=== PATIENT | female | born 1935 | race Caucasian/White ===

== ENCOUNTER → 2016-12-31 | Outpatient (CLI) | payer OTHER, MEDICARE | LOC: BMCIMAGING 14:27 | PROVIDERS: ATTEND Podiatrist Foot & Ankle Surgery | DX: M25.871 Other specified joint disorders, right ankle and foot (principal); M25.872 Other specified joint disorders, left ankle and foot ==

== ENCOUNTER 2017-01-26 07:17 | Emergency (ER) | payer OTHER, MEDICARE ==
[2017-01-26 07:26] VITALS: BP 155/90; PULSE 74; RESP 18; TEMP 97.7; O2SAT 92
--- NOTE | 2017-01-26 07:44 | EDPHY ---
H & P Time Seen by Provider: 01/26/17 07:36 HPI/ROS: CHIEF COMPLAINT: Left lateral knee pain HISTORY OF PRESENT ILLNESS: The patient is a 81-year-old female with no past medical history other than arthritis who presents to the emergency department with left lateral knee pain. She noticed her pain last evening. It is slightly swollen. It is worse with ambulation. Patient denies any trauma or fall. She has had no recent travel history. No posterior leg pain or swelling. She has not noticed any rash. REVIEW OF SYSTEMS: My complete review of systems is negative except as mentioned in the HPI. Past Medical/Surgical History: Arthritis. No history of gout or DVT. Past surgical history: Negative Social history: The patient does not smoke Smoking Status: Never smoked Physical Exam: Vitals noted General Appearance: Alert and no distress. Head: Pupils equal. Normal. Respiratory: No respiratory distress. Clear to auscultation bilaterally. Cardiac: regular rate and rhythm. Regular rate rhythm with no rubs murmurs or gallops. Extremities: Patient's left lower extremity appears symmetric to the right. The patient has mild swelling over the lateral aspect of her knee. There is mild tenderness to palpation over the distribution of the LCL. There is no popliteal fullness or palpable mass. Normal popliteal pulse. No calf tenderness. No Homans sign or cord. Patient has no discomfort with passive range of motion of her knee. There is no discomfort with stress on knee ligaments. No instability. Skin: No rashes or lesions. Neuro: Alert. Normal mood and affect. Constitutional: Initial Vital Signs Temperature (C) 36.5 C 01/26/17 07:21 Heart Rate 74 01/26/17 07:21 Respiratory Rate 18 01/26/17 07:21 Blood Pressure 155/90 H 01/26/17 07:21 O2 Sat (%) 92 01/26/17 07:21 O2 Delivery Mode Room Air Allergies/Adverse Reactions: No Known Allergies Allergy (Verified 01/26/17 07:20) Home Medications: Medication Instructions Recorded Hydrocodone/APAP 5/325 [Henrietta 1 - 2 tab PO Q4 #7 tab 01/26/17 5/325 (RX)] Medical Decision Making ED Course/Re-evaluation: In the emergency department I discussed possible etiologies with the patient. She consented to an x-ray of her left knee. Left knee x-ray: Please refer the dictated report. There is a small avulsion off the distal lateral femur. This is at the location of the patient's discomfort. I discussed the result with the patient. I answered all her questions. Patient will place ice on the lateral aspect of her knee for the next 2 days. Patient was given a knee immobilizer and crutches. She is given follow-up with Orthopedics. She also follow up with the primary care physician. I gave her warnings prior to leaving. Differential Diagnosis: Patient has discomfort on the lateral aspect of her knee. There is mild swelling. There is no ligamentous instability and I doubt ligamentous disruption. She could have some mild inflammation of her laterally. I doubt DVT or arterial occlusion. This is not appear to be zoster. I do not palpate of a Florian's cyst. Her popliteal artery palpates normal. Departure - Departure Disposition: Home, Routine, Self-Care Clinical Impression: Knee pain, acute Qualifiers: Laterality: left Qualified Code(s): M25.562 - Pain in left knee Condition: Good Instructions: Knee Pain (ED) Additional Instructions: Return with increasing pain, redness, fever, chills, posterior leg pain, posterior leg swelling or any other concerns. You have small avulsion off the distal femur. This could be causing her discomfort. You need close follow-up with Orthopedics. Referrals: Sherri Carbajal MD [Primary Care Provider] - 2-3 days, if not improved James Calix MD [Medical Doctor] - 5-7 days, call for appt. Prescriptions: Hydrocodone/APAP 5/325 [Henrietta 5/325 (RX)] 1 - 2 tab PO Q4 #7 tab
== END 2017-01-26 08:42 | disposition home or self-care (01) ==
DX: M25.562 Pain in left knee (principal)
CPT/HCPCS: 73562; 99283; L1830

== ENCOUNTER → 2017-05-02 | Outpatient (CLI) | payer OTHER, MEDICARE | LOC: BMCIMAGING 15:12 | PROVIDERS: ATTEND Internal Medicine Rheumatology | DX: Z13.820 Encounter for screening for osteoporosis (principal); M85.80 Other specified disorders of bone density and structure, unspecified site ==

== ENCOUNTER → 2017-10-09 | Outpatient (CLI) | payer OTHER, MEDICARE | LOC: FIMAGING 13:42 | PROVIDERS: ATTEND Orthopaedic Surgery | DX: Z01.818 Encounter for other preprocedural examination (principal); M16.11 Unilateral primary osteoarthritis, right hip ==

== ENCOUNTER 2017-10-23 08:17 | Inpatient (IN) | payer OTHER, MEDICARE ==
--- NOTE | 2017-10-08 11:15 | ASMTCMCOM ---
CM Note CM Note Notes: Per Dr. Sunita Monreal [phone] pt requests SNF d/c to [facility]. Date Signed: 10/08/2017 11:15 AM Electronically Signed By:LOLIS Chacon
[~2017-10-23 08:17] MED LIST: BUPI/epINEPH/KETOROLAC IU ONE; POVIDONE-IODINE 20 ML in SODIUM CL IRRIG SOLUTION 500 ML IRR ONE; ROPIVACAINE 0.2% 80 MG, EPINEPHrine 0.2 MG, KETOROLAC TROMETHAMINE 30 MG in SYRINGE 0 ML IU ONE; TRANEXAMIC ACID 1,000 MG in NS (SYRINGE) 50 ML IV ONE
[2017-10-23] MEDS ORDERED: DEXAMETHASONE 4 MG/ML VIAL IVP ONE (08:31)
[2017-10-23] MEDS ORDERED: ACETAMINOPHEN 325 MG TAB PO ONE (08:31)
[2017-10-23] MEDS ORDERED: ceFAZolin 2 GM/SWFI 2 GM/20 ML SYR IVP ONE (08:31)
[2017-10-23] MEDS ORDERED: FAMOTIDINE 20 MG TAB PO ONE (08:31)
[2017-10-23] MEDS ORDERED: LR 1,000 ML IV ONE (08:33)
[2017-10-23] MEDS ORDERED: POLYMYXIN B SULFATE 500,000 UNIT/10 ML SYR IRR ONE (09:00)
[2017-10-23] MEDS ORDERED: BUPIVACAINE/EPI 0.5% 30 ML SDV ONE (09:00)
[2017-10-23] MEDS ORDERED: BACITRACIN 50,000 UNITS/10 ML SYR IRR ONE (09:01)
--- NOTE | 2017-10-23 10:19 | PDANEPAE ---
ANE History of Present Illness right MEGHNA ANE Past Medical History - Cardiovascular History Hx Hypertension: Yes Hx Arrhythmias: No Hx Chest Pain: No Hx Coronary Artery / Peripheral Vascular Disease: No Hx CHF / Valvular Disease: No Hx Palpitations: No Cardiovascular History Comment: on HCTZ x 4-5 mos. - Pulmonary History Hx COPD: No Hx Asthma/Reactive Airway Disease: No Hx Recent Upper Respiratory Infection: No Hx Oxygen in Use at Home: No Hx Sleep Apnea: No Sleep Apnea Screening Result - Last Documented: Negative Pulmonary History Comment: seasonal allergies - Neurologic History Hx Cerebrovascular Accident: No Hx Seizures: No Hx Dementia: No - Endocrine History Hx Diabetes: No Hypothyroid: No Hyperthyroid: No - Renal History Hx Renal Disorders: No - Liver History Hx Hepatic Disorders: No - Neurological & Psychiatric Hx Hx Neurological and Psychiatric Disorders: No Neurological / Psychiatric History Comment: arthritis cervical and lumbar spine. spondylolisthesis. 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 - Cancer History Hx Cancer: No Cancer History Comment: some skin CA-lip - Congenital Disorder History Hx Congenital Disorders: No - GI History Hx Gastrointestinal Disorders: No - Other Health History Other Health History: OA hips- R hip worse - Chronic Pain History Chronic Pain: Yes (R hip) - Surgical History Prior Surgeries: bilat thumb arthroplasty;. cataract extraction w/IOL implants- bilat;. bone spur removal L ft; ANE Review of Systems Review of systems is: negative Review of Systems: - Exercise capacity Exercise capacity: >=4 METS METS (RN): 4 METS ANE Patient History - Allergies Allergies/Adverse Reactions: No Known Allergies Allergy (Verified 09/30/17 14:47) - Home Medications Home Medications: Herbals/Supplements -Info Only 1 ea PO DAILY 09/29/17 [Last Taken 10/16/17] Hydrochlorothiazide [HCTZ (*)] 25 mg PO DAILY 09/29/17 [Last Taken 10/23/17] Naproxen Sodium [Aleve 220 MG (*)] 220 mg PO BID PRN 09/29/17 [Last Taken Unknown] Sertraline HCl [Zoloft 100mg (*)] 100 mg PO DAILY 09/29/17 [Last Taken 10/23/17] Fluticasone Propionate [Clarispray] 1 spray NS DAILY PRN 09/30/17 [Last Taken ] - NPO status NPO Status: no food or drink >8 hours NPO Since - Liquids (Date): 10/23/17 NPO Since - Liquids (Time): 07:00 NPO Since - Solids (Date): 10/22/17 NPO Since - Solids (Time): 20:00 - Anes Hx Anes Hx: no prior problems - Smoking Hx Smoking Status: Never smoked - Alcohol Use Alcohol Use: Occasionally ANE Labs/Vital Signs - Vital Signs Vital Signs: reviewed preoperatively; see RN documention for details Blood Pressure: 136/81 Heart Rate: 77 Respiratory Rate: 16 O2 Sat (%): 94 Height: 158.75 cm Weight: 53.524 kg ANE Physical Exam - Airway Neck exam: FROM Mallampati Score: Class 2 - Pulmonary Pulmonary: no respiratory distress - Cardiovascular Cardiovascular: regular rate and rhythym - ASA Status ASA Status: II ANE Anesthesia Plan Anesthesia Plan: spinal
[2017-10-23] MEDS ORDERED: MIDAZOLAM 2 MG/2 ML VIAL IVP ONE (10:22)
--- NOTE | 2017-10-23 10:27 | PDHPUP ---
History & Physical Update H&P update statement: This history and physical update is based on an assessment of the patient which was completed after admission or registration (within 24 hours), but prior to the surgery/procedure. H&P update: H&P reviewed & patient examined, no change in patient's condition since H&P completed
[2017-10-23] MEDS ORDERED: BUPIVACAINE 0.5% 30 ML SDV ONE (10:34)
[2017-10-23] MEDS ORDERED: LIDOCAINE 2% 5 ML SDV ONE (10:35)
[2017-10-23] MEDS ORDERED: PROPOFOL/EMULSION 500 MG/50 ML BOTTLE IV ONE ×2 (10:35→12:08)
[2017-10-23] MEDS ORDERED: fentaNYL 100 MCG/2 ML INJ ONE (11:26)
[2017-10-23] MEDS ORDERED: epHEDrine SULFATE 10 MG/ML SYR ONE (11:32)
[2017-10-23] MEDS ORDERED: PHENYLEPHRINE HCL 100 MCG/ML SYR ONE (12:36)
[2017-10-23] MEDS ORDERED: HYDROCODONE/APAP 5/325 TAB PO PRN (13:28)
[2017-10-23] MEDS ORDERED: PROMETHAZINE HCL 25 MG/ML INJ IVP PRN ×2 (13:28→13:32)
[2017-10-23] MEDS ORDERED: ALBUTEROL 3 ML DEYVIAL IH PRN (13:28)
[2017-10-23] MEDS ORDERED: ONDANSETRON 4 MG/2 ML VIAL IVP PRN ×2 (13:28→13:32)
[2017-10-23] MEDS ORDERED: oxyCODONE IR 5 MG TAB PO PRN (13:28)
[2017-10-23] MEDS ORDERED: fentaNYL 100 MCG/2 ML INJ IVP PRN (13:28)
[2017-10-23] MEDS ORDERED: DIAZEPAM 5 MG/ML 1 ML SYR IVP PRN (13:28)
[2017-10-23] MEDS ORDERED: HYDROmorphONE/DILAUDID 1 MG/ML INJ IVP PRN (13:28)
[2017-10-23] MEDS ORDERED: NALOXONE HCL 0.4 MG/ML INJ IVP PRN (13:28)
--- NOTE | 2017-10-23 13:29 | POSTANESTH ---
Post Anesthetic Evaluation Cardiovascular Status: Normal, Stable Respiratory Status: Normal, Stable Level of Consciousness/Mental Status: Can Participate in Eval Pain Control: Adequate, Prn Tx Ordered Nausea/Vomiting Control: Adequate, Prn Tx Ordered Complications Possibly Related to Anesthesia: None Noted
[2017-10-23] MEDS ORDERED: BISACODYL 10 MG SUPP PR PRN (13:32)
[2017-10-23] MEDS ORDERED: diphenhydrAMINE 25 MG CAP PO PRN (13:32)
[2017-10-23] MEDS ORDERED: ONDANSETRON DISINTEGRATING 4 MG TAB PO PRN (13:32)
[2017-10-23] MEDS ORDERED: LACTULOSE 20 GM/30 ML UDCUP PO PRN (13:32)
[2017-10-23] MEDS ORDERED: PROMETHAZINE HCL 25 MG SUPPR PR PRN (13:32)
[2017-10-23] MEDS ORDERED: POLYETHYLENE GLYCOL 3350 17 GM PKT PO PRN (13:32)
[2017-10-23] MEDS ORDERED: METOCLOPRAMIDE 10 MG/2 ML VIAL IVP PRN (13:32)
[2017-10-23] MEDS ORDERED: TEMAZEPAM 15 MG CAP PO PRN (13:32)
[2017-10-23] MEDS ORDERED: DIPHENOXYLATE/ATROPINE LOMOTIL 1 TAB PO PRN (13:32)
[2017-10-23] MEDS ORDERED: MAGNESIUM HYDROXIDE 30 ML UDCUP PO PRN (13:32)
--- NOTE | 2017-10-23 13:32 | POSTOPPROG ---
Post Op Note Date of Operation: 10/23/17 Surgeon: Zeke Dorsey Seal Skinner: Rudy Weiss CSA Anesthesiologist: MD Francisco Javier Anesthesia: IV Sedation, Spinal Pre-op Diagnosis: Right hip end-stage OA Post-op Diagnosis: same Procedure: Right anterior MEGHNA with TRISTA robotic guidance Inf/Abcess present in the surg proc area at time of surgery?: No EBL: 100-500 (400) Drains: Hemovac
[2017-10-23] MEDS ORDERED: FLUTICASONE PROPIONATE NS PRN (13:36)
[2017-10-23] MEDS ORDERED: ceFAZolin 2 GM/DEXTROSE 100 ML IV SCH (14:00)
[2017-10-23] MEDS ORDERED: LR 1,000 ML IV SCH (14:00)
[2017-10-23] MEDS ORDERED: FLUTICASONE NASAL 120 SPRAYS/16 GM MDI EACHNARE PRN (14:22)
--- NOTE | 2017-10-23 14:25 | PDMN ---
Medical Necessity Medical necessity: [facility] IP only surgery; cpt [id number] R MEGHNA
--- NOTE | 2017-10-23 14:57 | ASMTCMCOM ---
CM Note CM Note Notes: Pt had R total hip today. PT/OT evals pending. Spoke w pt and dghtr, pt still interested in [facility] d/c. Referral sent in [employer]. CM to follow. Date Signed: 10/23/2017 02:56 PM Electronically Signed By:LOLIS Chacon
[2017-10-23] MEDS: oxyCODONE IR 5 MG TAB PO PRN ×2 (15:31→20:52)
[2017-10-23] MEDS: ACETAMINOPHEN 325 MG TAB PO SCH ×2 (17:43→23:50)
[2017-10-23] MEDS: ceFAZolin 2 GM/SWFI 2 GM/20 ML SYR IVP SCH (18:25)
--- NOTE | 2017-10-23 19:24 | GOP ---
[f rep st] OPERATIVE REPORT DATE OF OPERATION: 10/23/2017 SURGEON: Zeke Dorsey MD BROKE BEATER MACHINE OPERATOR: MITA Dupree. Statistician Applied was required for the procedure due to the complexity of the case, the patient's condition, for positioning, prepping, draping, retraction, and closure. ANESTHESIA: Spinal with IV sedation. PREOPERATIVE DIAGNOSIS: Right hip osteoarthritis. POSTOPERATIVE DIAGNOSIS: Right hip osteoarthritis. PROCEDURE PERFORMED: Right hip anterior approach, hip replacement with Fran robotic guidance and fluoroscopic supervision, greater than 1 hour. FINDINGS: SPECIMENS: None. ESTIMATED BLOOD LOSS: 400 cc. INDICATIONS: The patient has severe osteoarthritis that failed to improve with conservative measures significantly affecting the activities of daily living, including walking. The patient elected to proceed with an anterior approach hip replacement using MAKOplasty robotic guidance after extensive discussion of all possible approaches as well as risks, benefits, pros, cons, expected recovery, and prognosis. The patient verbalized an understanding of the risks and benefits of the procedure and signed the informed consent prior to the procedure. DESCRIPTION OF PROCEDURE: Patient was seen in the holding area. Operative consent and extremity were signed, and the patient taken to the operating room. After smooth induction of general anesthesia, patient was placed in the supine position on the Storz fracture table. The hip and contralateral iliac crest were prepped and draped in the usual sterile fashion. Operative site was confirmed by signature. Operative time-out performed. Allergies reviewed. Antibiotics and TXA administered. Three pins were placed in the contralateral iliac crest and the pelvic array was fixed. It was well visualized by the robot. The desired incision for the anterior approach of the hip was infiltrated with 0.5% Marcaine with epinephrine. An incision was made with a 10 blade, carried down through subcutaneous tissue to identify TFL fascia. This was incised inline with the incision and the TFL was retracted laterally. The lateral femoral circumflex vessels were coagulated with Aquamantys and Bovie electrocautery. The deep TFL fascia was incised and the vastus lateralis was clearly exposed. Precapsular fat was excised. A T-shaped capsulotomy was performed and the capsule was preserved for later closure. The femoral checkpoint was fixed into the anterior greater trochanter and Express registration was completed. Fluoroscopic guidance was used to junie the femoral neck osteotomy. The femoral neck cut was then performed with an oscillating saw and was excised with a corkscrew. Adequate amount In-line femoral traction was applied and locked with the foot in 45 degrees of external rotation for acetabular exposure. Acetabulum was exposed in the standard fashion. Labrum and pulvinar soft tissue were excised sharply. The pelvic checkpoint was placed in the AIIS. Acetabular registration was performed using the robot. Reaming was then performed using the robot to the desired size. The cup was impacted into place with the robotic guidance system. Good fixation was achieved. The cup was irrigated and dried and the liner was impacted into place, achieving good locking within the cup. A half-inch curved osteotome was used to remove overhanging osteophytes around the acetabular component. The femur was then exposed in the standard fashion. The femur was broached to the desired size. Trial neck and head were attached and the hip was reduced. Length and offset were checked, using both the Express guidance system of the robot as well as fluoroscopy. The hip was then dislocated and the femoral trial components were removed. The stem was impacted into place. Trunnion was cleaned and dried and the head was impacted down onto the trunnion. The wound was then copiously irrigated, including the cup with pulse lavage and the hip was once again relocated. Component placement was confirmed with fluoroscopy. All checkpoints were removed. The pelvic array was also removed. The wound was copiously irrigated with sterile solution, dilute Betadine. Solution was then irrigated into the wound and allowed to soak for 3 minutes before being irrigated out. Joint cocktail was injected into the soft tissues. The capsule was repaired with #1 Vicryl, as was the indirect head of the rectus femoris. The drain was placed exiting distal and laterally from deep to TFL. The wound was then closed in layers with 0 Quill in the TFL fascia, deep subcutaneous fat , and 3-0 Versalok in the dermis. The wound was then dressed with Dermabond, Steri-Strips, and a sterile dressing. Patient was safely awakened, taken to recovery room in stable condition. All critical portions of the procedure performed by myself, Dr. Dorsey. This operative note was created by myself and I was immediately available for emergency cross-coverage at all times. DRAINS: Hemovac x1. COMPLICATIONS: None. IMPLANTS: Tritanium 50 mm acetabular shell, +32 mm polyethylene liner, Accolade II size 5 stem, 127 degree offset, and 32 mm -4mm head. /[id number]/MODL MTDD
[2017-10-23] MEDS: SENNOSIDES/DOCUSATE SODIUM TAB PO SCH (20:51)
[2017-10-23] MEDS: ASPIRIN 325 MG TAB PO SCH (20:52)
[2017-10-23] MEDS: FAMOTIDINE 20 MG TAB PO SCH (20:53)
[2017-10-24] MEDS: ceFAZolin 2 GM/SWFI 2 GM/20 ML SYR IVP SCH (03:04)
[2017-10-24] MEDS: oxyCODONE IR 5 MG TAB PO PRN ×2 (03:04→20:05)
[2017-10-24] MEDS: ACETAMINOPHEN 325 MG TAB PO SCH ×3 (05:32→17:29)
--- NOTE | 2017-10-24 07:34 | SOAPPROG ---
SOAP Progress Note Assessment/Plan: Assessment: Postoperative day 1 status post right anterior approach total hip arthroplasty Plan: Remove drain Weight-bearing as tolerated with assistance and PT OT Analgesics as needed, wean off narcotics when tolerated Incentive spirometry 10 times per hour Aspirin 325 mg daily, Arabella Perez for DVT prophylaxis [facility]: [facility], likely today 10/24/17 07:29 10/24/17 07:34 Subjective: No acute events overnight. some pain with getting up to standing however much better when up and ambulating. Denies fevers chills nausea vomiting chest pain shortness of breath numbness tingling. Objective: Vital Signs Temp Pulse Resp BP Pulse Ox 36.7 C 67 16 104/59 L 92 10/24/17 03:06 10/24/17 03:06 10/24/17 03:06 10/24/17 03:06 10/24/17 03:06 Laboratory Results 10/24/17 04:21 10/23/17 10/24/17 10/25/17 05:59 05:59 05:59 Intake Total 2450 Output Total 2820 Balance -370 Awake alert and oriented x3, no acute distress Easy nonlabored breathing Right lower extremity: Mild swelling and ecchymosis No erythema or drainage Hemovac drain still in place Thigh and calf compartments soft compressible No calf pain Sensation intact to light touch from L4-S1 Motor intact to EHL, FHL, tibialis anterior, gastrocsoleus Palpable DP PT pulses - Time Spent With Patient Time Spent With Patient: 15 - Pending Discharge Pending Discharge Within 24 Hours: Yes Pending Discharge Date: 10/24/17 Pending Discharge Time: 11:00 ICD10 Worksheet Patient Problems: Problems Problem Status Onset Osteoarthritis of right hip Acute
[2017-10-24] MEDS: ASPIRIN 325 MG TAB PO SCH (08:45)
[2017-10-24] MEDS: SERTRALINE HCL 100 MG TAB PO SCH (08:45)
[2017-10-24] MEDS: SENNOSIDES/DOCUSATE SODIUM TAB PO SCH ×2 (08:45→20:05)
[2017-10-24] MEDS: FAMOTIDINE 20 MG TAB PO SCH (08:45)
--- NOTE | 2017-10-24 16:41 | ASMTCMCOM ---
CM Note CM Note Notes: Spoke with pt, RN & MD. Anticipate dc on Friday, 10/26. Faxed updates to [facility] & [facility] for Allie; awaiting decision on whether or not they can accept pt. CM will continue to follow. TBD- [facility]? Date Signed: 10/24/2017 04:40 PM Electronically Signed By:Madonna Issa RN
[2017-10-25] MEDS: FAMOTIDINE 20 MG TAB PO SCH ×3 (00:47→23:35)
[2017-10-25] MEDS: CYCLOBENZAPRINE 10 MG TAB PO PRN ×2 (03:05→15:08)
[2017-10-25] MEDS: ACETAMINOPHEN 325 MG TAB PO SCH ×5 (03:13→23:51)
[2017-10-25] MEDS: ASPIRIN 325 MG TAB PO SCH (09:04)
[2017-10-25] MEDS: SENNOSIDES/DOCUSATE SODIUM TAB PO SCH ×2 (09:04→23:38)
[2017-10-25] MEDS: SERTRALINE HCL 100 MG TAB PO SCH (09:04)
--- NOTE | 2017-10-25 13:43 | SOAPPROG ---
SOAP Progress Note Assessment/Plan: Assessment: Postoperative day 2 status post right anterior approach total hip arthroplasty Plan: Weight-bearing as tolerated with assistance and PT OT Analgesics as needed, wean off narcotics when tolerated Incentive spirometry 10 times per hour Aspirin 325 mg daily, Arabella Perez for DVT prophylaxis Disposition: [facility] acute rehab after 3 midnights - 10/2610/25/17 13:39 Subjective: No acute events overnight. Patient states she feels "amazing." Has been ambulating about the entire floor. Denies fevers chills nausea vomiting chest pain shortness of breath numbness or tingling Objective: Vital Signs Temp Pulse Resp BP Pulse Ox 36.8 C 78 17 106/60 92 10/24/17 23:14 10/24/17 23:14 10/24/17 23:14 10/24/17 23:14 10/24/17 23:14 Laboratory Results 10/25/17 05:07 10/24/17 10/25/17 10/26/17 05:59 05:59 05:59 Intake Total 2450 900 Output Total 2820 2050 200 Balance -370 -1150 -200 Awake alert and oriented x3, no acute distress Easy nonlabored breathing Left pin sites c/d/i Right lower extremity: Mild swelling and ecchymosis No erythema or drainage drain discontinued Thigh and calf compartments soft compressible No calf pain Sensation intact to light touch from L4-S1 Motor intact to EHL, FHL, tibialis anterior, gastrocsoleus Palpable DP PT pulses - Time Spent With Patient Time Spent With Patient: 10 - Pending Discharge Pending Discharge Within 24 Hours: Yes Pending Discharge Date: 10/26/17 Pending Discharge Time: 10:00 ICD10 Worksheet Patient Problems: Problems Problem Status Onset Osteoarthritis of right hip Acute chronic disease mgmt/transitional care Acute
[2017-10-26] MEDS: ACETAMINOPHEN 325 MG TAB PO SCH ×2 (07:28→12:00)
[2017-10-26] MEDS: ASPIRIN 325 MG TAB PO SCH (09:03)
[2017-10-26] MEDS: SERTRALINE HCL 100 MG TAB PO SCH (09:03)
[2017-10-26] MEDS: FAMOTIDINE 20 MG TAB PO SCH (09:03)
[2017-10-26] MEDS: SENNOSIDES/DOCUSATE SODIUM TAB PO SCH (09:04)
--- NOTE | 2017-10-26 12:36 | PDIAF ---
- Diagnosis Diagnosis: right hip osteoarthritis Code Status: Limited Resuscitation - Medication Management Discharge Medications: Medications to Continue on Transfer Hydrochlorothiazide [HCTZ (*)] 25 mg PO DAILY 09/29/17 [Last Taken 10/23/17] Sertraline HCl [Zoloft 100mg (*)] 100 mg PO DAILY 09/29/17 [Last Taken 10/23/17] Fluticasone Propionate [Clarispray] 1 spray NS DAILY PRN 09/30/17 [Last Taken ] Aspirin [Aspirin 325 mg (*)] 325 mg PO DAILY tab 10/24/17 [Last Taken Unknown] Discharge Medications: Refer to the Discharge Home Medication list for PRN reason. - Orders Services needed: Physical Therapy, Occupational Therapy Isolation Type: None Oxygen: as needed Diet Recommendation: no restrictions on diet Diet Texture: Regular Texture Diet Gerber: No Sulaiman Stockings Discontinue Date: 1 month from surgery Wound Care Instructions: see handout Sutures/Bulmaro Site: right hip, left iliac crest Activity/Weight Bearing Restrictions: WBAT see handout Additional Instructions: see handout - Follow Up Care Current Providers and Referrals: Zeke Dorsey MD [Medical Doctor] - Amanda Clay MD [Primary Care Provider] -
--- NOTE | 2017-10-26 12:52 | SOAPPROG ---
SOAP Progress Note Assessment/Plan: Assessment: Postoperative day 3 status post right anterior approach total hip arthroplasty Plan: Weight-bearing as tolerated with assistance and PT OT Analgesics as needed, wean off narcotics when tolerated Incentive spirometry 10 times per hour Aspirin 325 mg daily, Arabella Perez for DVT prophylaxis Dis[facility]: [facility] today 10/26/17 12:50 Subjective: No acute events overnight. Pain well controlled. Working well physical therapy. Denies fevers chills nausea vomiting chest pain shortness of breath numbness or tingling. Objective: Vital Signs Temp Pulse Resp BP Pulse Ox 37.7 C 93 16 135/71 H 93 10/26/17 08:00 10/26/17 08:00 10/26/17 08:00 10/26/17 08:00 10/26/17 08:00 Laboratory Results 10/25/17 05:07 10/25/17 10/26/17 10/27/17 05:59 05:59 05:59 Intake Total 900 800 Output Total 2050 1500 Balance -1150 -1500 800 Awake alert and oriented x3, no acute distress Easy nonlabored breathing Left pin sites c/d/i Right lower extremity: dressing c/d/i Mild swelling and ecchymosis No erythema or drainage Thigh and calf compartments soft compressible No calf pain Sensation intact to light touch from L4-S1 Motor intact to EHL, FHL, tibialis anterior, gastrocsoleus Palpable DP PT pulses - Time Spent With Patient Time Spent With Patient: 10 - Pending Discharge Pending Discharge Within 24 Hours: Yes Pending Discharge Date: 10/26/17 Pending Discharge Time: 13:00 ICD10 Worksheet Patient Problems: Problems Problem Status Onset Osteoarthritis of right hip Acute chronic disease mgmt/transitional care Acute
--- NOTE | 2017-10-26 13:50 | GDS ---
[f rep st] DISCHARGE SUMMARY ADMITTING DIAGNOSIS: Right hip osteoarthritis. DISCHARGE DIAGNOSIS: Right hip osteoarthritis. PROCEDURE PERFORMED: Right anterior approach total hip arthroplasty with Fran robotic guidance. HOSPITAL COURSE: Patient was admitted on the above date and underwent the above procedure without co mplication. She tolerated it well. The pain was very well controlled postoperatively. She was prov ided analgesic medications as needed, aspirin for DVT prophylaxis and worked with physical therapy. She also received perioperative antibiotic prophylaxis with Ancef. She was admitted for 3 midnights prior to discharge, to [facility] rehab. FOLLOW UP: Follow up in 10-14 days in the office, call with any questions. DISCHARGE MEDICATIONS: Include Percocet as needed for pain. Colace for stool softener, and aspirin 325 mg daily for 1 month. DISCHARGE DISPOSITION: [facility] rehab. CONDITION UPON DISCHARGE: Stable. /[id number]/MODL
[2017-10-26 15:59] VITALS: BP 117/65
== END 2017-10-26 16:27 | DRG 470 ==
LOC: F3N 08:17
PROVIDERS: ADMIT Orthopaedic Surgery; ATTEND Orthopaedic Surgery
PROC: 0SR904Z Replacement of Right Hip Joint with Ceramic on Polyethylene Synthetic Substitute, Open Approach (ICD-10-PCS; principal; 2017-10-23 09:45)
PROC: 8E0Y0CZ Robotic Assisted Procedure of Lower Extremity, Open Approach (ICD-10-PCS; principal; 2017-10-23 09:45)
DX: M16.11 Unilateral primary osteoarthritis, right hip (principal); I10 Essential (primary) hypertension
CPT/HCPCS: 97116-GP; 97161-GP; 97165-GO; 97530-GO; 97530-GP; 97535-GO; G8978-GP-CJ; G8979-GP-CI; G8987-GO-CJ; G8988-GO-CI; J0171; J0690; J1100; J1885; J2250; J2370; J2704; J3010